=== PATIENT | female | born 1990 | race Caucasian/White ===

== ENCOUNTER 2020-05-21 09:15 | Emergency (ER) | payer OTHER ==
[2020-05-21] MEDS ORDERED: FAMOTIDINE INJ/PF 20 MG/2 ML SDV IV ONE (10:26)
[2020-05-21] MEDS ORDERED: METHOCARBAMOL INJ/PF 1000 MG/10 ML SDV IV ONE (10:26)
[2020-05-21] MEDS ORDERED: KETOROLAC TROMETHAMINE INJ/PF 30 MG/1 ML SDV IV ONE (10:26)
[2020-05-21] MEDS ORDERED: NORMAL SALINE 1000 ML 1,000 ML IV ONE (10:26)
[2020-05-21] MEDS ORDERED: HYDROMORPHONE HCL INJ/PF 2 MG/ML AMPULE IV ONE ×2 (10:26→12:03)
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
[2020-05-21] MEDS ORDERED: ONDANSETRON HCL INJ/PF 4 MG/2 ML SDV IV ONE (12:07)
[2020-05-21 14:51] VITALS: BP 116/70
== END 2020-05-21 14:49 | disposition home or self-care (01) ==
LOC: ER 09:15
DX: S29.012A Strain of muscle and tendon of back wall of thorax, initial encounter (principal); M54.2 Cervicalgia; X50.0XXA Overexertion from strenuous movement or load, initial encounter; Y93.89 Activity, other specified; Y99.0 Civilian activity done for income or pay; F17.210 Nicotine dependence, cigarettes, uncomplicated; Z88.1 Allergy status to other antibiotic agents; Z88.6 Allergy status to analgesic agent
CPT/HCPCS: 96376; 99283; 96375; 96365; J2800; J1885; J1170; J2405; J7030; S0028

== ENCOUNTER 2020-12-11 06:04 | Emergency (ER) | payer OTHER ==
[2020-12-11 06:10] VITALS: BP 130/85
[2020-12-11] MEDS ORDERED: OXYCODONE-ACETAMINOPHEN 5-325 MG TABLET PO ONE (08:02)
--- NOTE | 2020-12-11 08:30 | RADIOLOGY REPORT (SQ) ---
EXAM DESCRIPTION: FINGER RIGHT IMAGES COMPLETED DATE/TIME: 12/11/2020 8:14 am REASON FOR STUDY: 4th finger crush COMPARISON: None. NUMBER OF VIEWS: Three views. TECHNIQUE: AP, lateral, and oblique images acquired of the right fourth finger. LIMITATIONS: None. FINDINGS: MINERALIZATION: Normal. BONES: No acute fracture or dislocation. No worrisome bone lesions. SOFT TISSUES: Mild soft tissue swelling about the 4th digit. No radiopaque foreign body. OTHER: No other significant finding. IMPRESSION: No evidence of acute bony abnormality of the 4th finger. COMMENT: SITE OF TRAUMA/COMPLAINT MARKED/STAMP COMPLETED: yes TECHNICAL DOCUMENTATION: JOB ID: [id number] 2010 [employer]- All Rights Reserved Reading location - IP/workstation name: [email or web address]
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
== END 2020-12-11 09:11 | disposition home or self-care (01) ==
LOC: ER 06:04
DX: S60.10XA Contusion of unspecified finger with damage to nail, initial encounter (principal); S62.634A Displaced fracture of distal phalanx of right ring finger, initial encounter for closed fracture; W22.8XXA Striking against or struck by other objects, initial encounter; Y92.9 Unspecified place or not applicable; Y99.0 Civilian activity done for income or pay
CPT/HCPCS: 99283